=== PATIENT | male | born 1985 | race Caucasian/White ===

== ENCOUNTER 2019-06-11 00:05 | Emergency (ER) | payer SELFPAY ==
[2019-06-11 00:11] VITALS: BP 152/86; PULSE 68; RESP 20; TEMP 36.1; O2SAT 100
[2019-06-11 00:20] LABS: Bacteria Urine None Seen
--- NOTE | 2019-06-11 00:22 | ED_ITS ---
HPI - Abdominal Pain General Chief Complaint: Abdominal Pain Stated Complaint: left side pain into testicles, vomiting Time Seen by Provider: 06/11/19 00:07 Source: patient Mode of arrival: ambulatory Limitations: no limitations History of Present Illness HPI narrative: 33-year-old male here for evaluation of left-sided flank pain radiating the left side of his abdomen down to the left testicle. Patient states that it started earlier today. He stated that he did take some ibuprofen which seemed to relieve the symptoms enough to a point where he could go out to the store. He stated that when he returned home and laid down the symptoms suddenly returned. He also feels like he has been urinating more recently. Also had some nausea vomiting. No fevers. Has never had a kidney stone before. Pain is not worse with palpation or movement. Related Data Previous Rx's Medication Instructions Recorded selenium sulfide 1 sunny TOPICAL QDAY #118 ml 06/30/16 clotrimazole 1 % topical cream 1 applictn TOP TID 28 Days #30 gram 05/02/19 prednisone 20 mg tablet 20 mg PO DAILY #12 tab 05/02/19 sulfamethoxazole 800 1 tab PO BID #20 tab 05/02/19 mg-trimethoprim 160 mg tablet hydrocodone-acetaminophen 1 tab PO Q4-6H PRN #7 tab 06/11/19 ondansetron 4 mg PO Q6H PRN #7 tab 06/11/19 Allergies Allergy/AdvReac Type Severity Reaction Status Date / Time No Known Drug Allergies Allergy Verified 05/02/19 12:46 Review of Systems Constitutional Denies fever(s) and Denies headache(s) ENT Ears, Nose, Mouth, and Throat: Denies headache(s) Cardiovascular Denies chest pain and Denies dyspnea Respiratory Denies dyspnea Gastrointestinal Gastrointestinal: Reports abdominal pain, Reports nausea and Reports vomiting Genitourinary Comments: Pain radiating to the left testicle Musculoskeletal Reports back pain, Denies myalgias and Denies arthralgias Integumentary/Breasts Denies rash Neurologic Denies behavioral changes and Denies headache(s) Psychiatric Denies behavioral changes Hematologic/Lymphatic Denies easy bleeding and Denies easy bruising [facility] Medical History Patient denies medical problems (Acute) Social History Smoking Status: Never smoker Social History Smoking Status: Never smoker Exam Initial Vital Signs Initial Vital Signs: Vital Signs Temperature 96.9 F L 06/11/19 00:11 Pulse Rate 68 06/11/19 00:11 Respiratory Rate 20 06/11/19 00:11 Blood Pressure 152/86 H 06/11/19 00:11 Pulse Oximetry 100 06/11/19 00:11 Const General: cooperative, comfortable, well developed and well groomed Orientation: alert and awake HENMT Head: normal to inspection and normocephalic Resp Effort & Inspection: normal respiratory effort Auscultation: clear to auscultation bilaterally Cardio Rate: regular rate Rhythm: regular rhythm GI Inspection: non-distended Palpation: soft, No firm and No tender Back/Spine/Pelvis Back: No CVA tenderness Skin Lesions: no lesions Rashes: no rashes Neuro General: alert and awake Speech: speech normal Motor: muscle tone normal throughout Sensory Exam: no sensory deficits noted Extrem General: normal to inspection and capillary refill normal Psych Appearance: grossly normal and well kempt Course Orders Ordered: ED Orders 06/11/19 00:15 Urinalysis and Microscopic Stat 06/11/19 00:22 CT kidney ureter bladder (KUB) Stat 06/11/19 00:25 Basic Metabolic Panel Stat Complete Blood Count AUTO DIFF Stat Discontinued Medications Hydrocodone Bitart/Acetaminophen (Vicodin Prepack) 1 bottle MISC SEEINSTR ONE Stop: 06/11/19 01:19 Last Admin: 06/11/19 01:27 Dose: 1 bottle Hydromorphone HCl (Dilaudid) 1 mg IV NOW ONE Stop: 06/11/19 00:21 Last Admin: 06/11/19 00:28 Dose: 1 mg Ketorolac Tromethamine (Toradol) 30 mg IV NOW ONE Stop: 06/11/19 00:21 Last Admin: 06/11/19 00:29 Dose: 30 mg Ondansetron HCl (Zofran) 4 mg IV NOW ONE Stop: 06/11/19 00:21 Last Admin: 06/11/19 00:29 Dose: 4 mg Ondansetron HCl (Zofran Odt Prepack) 1 bottle MISC SEEINSTR ONE Stop: 06/11/19 01:19 Last Admin: 06/11/19 01:27 Dose: 1 bottle Vital Signs - 8 hr 06/11/19 00:11 06/11/19 00:48 06/11/19 01:29 Temperature 96.9 F L Pulse Rate 68 68 64 Respiratory Rate 20 18 18 Blood Pressure 152/86 H 121/70 Blood Pressure [Left Arm] 116/69 Pulse Oximetry 100 99 100 MDM - Abdominal Pain Lab Data Attestation: I reviewed the patient's lab results. Result diagrams: 06/11/19 00:25 06/11/19 00:25 Lab Results 06/11/19 06/11/19 06/11/19 Range/Units 00:15 00:25 00:25 WBC 7.1 (4.5-11.0) X10^3/uL RBC 4.87 (4.5-5.9) X10^6/uL Hgb 14.0 (13.5-17.5) g/dL Hct 40.5 L (41-53) % MCV 83.2 (80-100) fL MCH 28.8 (26-34) PG MCHC 34.6 (30-36) % RDW 14.1 (11.6-14.8) % Plt Count 299 (150-400) X10^3/uL Neut % (Auto) 57.2 (50-75) % Lymph % (Auto) 30.9 (25-40) % [place] % (Auto) 9.7 (3-14) % Eos % (Auto) 1.5 L (2-4) % Baso % (Auto) 0.7 (0-2) % Neut # (Auto) 4100 (5518-5402) /uL Lymph # (Auto) 2200 (0788-1195) /uL Bledsoe # (Auto) 700 (0-900) /uL Eos # (Auto) 100 (0-450) /uL Baso # (Auto) 0 (0-100) /uL Sodium 141 (137-145) mmol/L Potassium 4.4 (3.4-5.1) mmol/L Chloride 103 (98-107) mmol/L Carbon Dioxide 26 (22-32) mmol/L BUN 19 (9-20) mg/dL Creatinine 1.20 (0.66-1.25) mg/dL Estimated GFR > 60.0 (>60) mL/min BUN/Creatinine Ratio 15.8 (6-22) Glucose 106 H (70-100) mg/dL Calcium 8.9 (8.4-10.2) mg/dL Urine Color Yellow Urine Appearance Clear Urine pH 5.5 (4.5-8.0) Ur Specific [place] >=1.030 H (1.000-1.035) Urine Protein Negative (Negative) Urine Glucose (UA) Negative (Negative) g/dL Urine Ketones Trace H (NEGATIVE) Urine Occult Blood 3+ H (Negative) Urine Nitrate Negative (Negative) Urine Bilirubin Negative (NEGATIVE) Urine Urobilinogen 0.2 (0.2) E.U./dL Ur Leukocyte Esterase Negative (NEGATIVE) Urine RBC 0-1/hpf (0-5/HPF) Urine WBC 1-5/hpf (0-5/HPF) Ur Squamous Epith Cells 0-1 /hpf (0-5/HPF) Amorphous Sediment 1+ Urine Bacteria None seen (None) Hyaline Casts 1-5/lpf (None) Urine Mucus 3+ H (Negative) Ur Culture Indicated? Cult not indicated Imaging Data CT scan - abdomen: Radiologist's impression: Read by real radiology 2 mm distal left ureteral stone MDM Narrative Medical decision making narrative: History and physical exam consistent with a left-sided ureteral stone. This is confirmed by the CT scan. No fevers. Cr eatinine is unremarkable. No sign of urinary tract infection. Will send home with symptom treatment. We discussed return precautions and follow-up instructions. He expressed understanding and agreement with plan. Discharge Plan Departure Patient Disposition: Home Clinical Impression: Left ureteral stone, Renal colic on left side Discharge Date/Time: 06/11/19 01:29 Interventions: ED Discharge Assessment Last Done: 06/11/19 01:29 Instructions: DI for Kidney Stones Activity Restrictions/Additional Instructions: Take the medication as directed. Be sure to increase your fluid intake. Return to the emergency department for any new symptoms to include fevers, inability to urinate or pain that is not controlled with the medication. You can contact 360 talk with the health resource conservation specialist here at the hospital to help establishing a primary provider. Prescriptions: New hydrocodone-acetaminophen 5-325 mg tablet 1 tab PO Q4-6H PRN (Reason: pain) Qty: 7 RF: 0 ondansetron 4 mg tablet,disintegrating 4 mg PO Q6H PRN (Reason: nausea and vomiting) Qty: 7 RF: 0 No Action prednisone 20 mg tablet 20 mg PO DAILY Qty: 12 RF: 0 sulfamethoxazole-trimethoprim [Bactrim DS] 800-160 mg tablet 1 tab PO BID Qty: 20 RF: 0 clotrimazole 1 % cream 1 applictn TOP TID 28 Days Qty: 30 RF: 1 selenium sulfide 118 ML lotion 1 sunny Topical QDAY Qty: 118 RF: 0
--- NOTE | 2019-06-11 00:22 | DI.CT.S_ITS ---
PROCEDURE: CT KIDNEY URETER BLADDER (KUB) INDICATIONS: left sided pain ,concern for stone TECHNIQUE: Noncontrast 5 mm thick sections acquired from the diaphragms to the symphysis. 5 mm thick coronal and sagittal reformats were then performed. For radiation dose reduction, the following was used: automated exposure control, adjustment of mA and/or kV according to patient size. COMPARISON: None. FINDINGS: Image quality: Excellent. Lung bases: Lung bases are clear. Heart size is normal. Urinary system: Both kidneys are normal in size. No kidney stones. There is a 2 mm distal left ureteral stone with associated minimal left hydroureteronephrosis. No right-sided hydronephrosis or perinephric fat stranding. The right ureter appears non-dilated throughout its expected course. Bladder wall thickness is normal; no calcified bladder stones. Other solid organs: Liver is prominent in size with diffuse hepatic steatosis. Gallbladder appears unremarkable. Pancreas is normal in contours. Spleen is normal in size. No adrenal nodules. Peritoneum and bowel: Unenhanced bowel loops demonstrate normal wall thickness and caliber. No free fluid or air. Normal appendix. Nodes and vessels: No retroperitoneal or mesenteric adenopathy by size criteria. Aorta and inferior vena cava are normal in caliber. Abdominal wall: No ventral hernias. Pelvis: No free pelvic fluid. No inguinal hernias or adenopathy. Bones: No suspicious bony lesions. No vertebral body compression fractures. IMPRESSION: 1. A 2 mm distal left ureteral stone with associated minimal left hydroureteronephrosis. No nephrolithiasis visualized. 2. Normal appendix. 3. Hepatic steatosis. No significant discrepancy with the shift superintendent caustic cresylate radiology preliminary report. Dictated by: Duane Verdin M.D. on 06/11/2019 at 7:41 Approved by: Duane Verdin M.D. on 06/11/2019 at 7:48
[2019-06-11 00:24] LABS: Appearance Urine UA CLEAR; Bilirubin Urine UA NEGATIVE (NEGATIVE); Color Urine UA YELLOW; Glucose Urine UA NEGATIVE (Negative); Ketones Urine UA TRACE (NEGATIVE); Leukocyte Esterase Urine UA NEGATIVE (NEGATIVE); Nitrite Urine UA NEGATIVE (Negative); Occult Blood Urine UA 3+ (Negative); Protein Urine UA NEGATIVE (Negative); Specific Gravity Urine UA >=1.030 (1.000-1.035); Urobilinogen Urine UA 0.2 E.U./dL (0.2); pH Urine UA 5.5 (4.5-8.0)
[2019-06-11] MEDS: HYDROMORPHONE 1 MG INJ IV (00:28)
[2019-06-11] MEDS: KETOROLAC 60 MG/2 ML VIAL 30 MG IV (00:29)
[2019-06-11] MEDS: ONDANSETRON 4 MG/2 ML INJ IV (00:29)
[2019-06-11 00:30] LABS: Add Manual Diff / Slide Review NO; Basophils Absolute Auto 0 /uL (0-100); Basophils Percent Auto 0.7 % (0-2); Eosinophils Absolute Auto 100 /uL (0-450); Eosinophils Percent Auto 1.5 % (2-4); Hematocrit 40.5 % (41-53); Lymphocytes Absolute Auto 2200 /uL (1100-4500); Lymphocytes Percent Auto 30.9 % (25-40); Mean Corpuscular HGB Conc 34.6 % (30-36); Mean Corpuscular Hemoglobin 28.8 PG (26-34); Mean Corpuscular Volume 83.2 fL (80-100); Monocytes Absolute Auto 700 /uL (0-900); Monocytes Percent Auto 9.7 % (3-14); Neutrophils Absolute Auto 4100 /uL (1500-7000); Neutrophils Percent Auto 57.2 % (50-75); Platelet Count 299 X10^3/uL (150-400); Red Blood Cell Count 4.87 X10^6/uL (4.5-5.9); Red Cell Distribution Width 14.1 % (11.6-14.8); White Blood Cell Count 7.1 X10^3/uL (4.5-11.0)
[2019-06-11 00:37] LABS: Amorphous Sediment Urine 1+; Culture Indicated Urine Cult Not Indicated; Hyaline Casts Urine 1-5/LPF; Mucus Urine 3+ (Negative); RBC Urine 0-1/HPF (0-5/HPF); Squamous Epithelial Cell Urine 0-1 /HPF (0-5/HPF); WBC Urine 1-5/HPF (0-5/HPF)
[2019-06-11 00:41] LABS: BUN Creatinine Ratio 15.8 (6-22); Blood Urea Nitrogen 19 mg/dL (9-20); Calcium 8.9 mg/dL (8.4-10.2); Carbon Dioxide 26 mmol/L (22-32); Chloride 103 mmol/L (98-107); Estimated Glomerular Filt Rate > 60.0 mL/min (>60); Glucose 106 mg/dL (70-100); HEMOLYSIS < 15 (0-50); Potassium 4.4 mmol/L (3.4-5.1); Sodium 141 mmol/L (137-145)
[2019-06-11 00:48] VITALS: BP 116/69; PULSE 68; RESP 18; O2SAT 99
[2019-06-11] MEDS: HYDROCODONE/ACET 5/325 PREPACK 1 BOTTLE MISC (01:27)
[2019-06-11] MEDS: ONDANSETRON 4 MG ODT PREPACK 1 BOTTLE MISC (01:27)
[2019-06-11 01:29] VITALS: BP 121/70; PULSE 64; RESP 18; O2SAT 100
== END 2019-06-11 01:29 | disposition home or self-care (01) ==
PROVIDERS: Emergency Provider Emergency Medicine
DX: N20.1 Calculus of ureter (principal); N23 Unspecified renal colic
CPT/HCPCS: 36591; 74176; 80048; 81001; 85025; 96374; 96375; 99282; 99284; J1170; J1885; J2405

== ENCOUNTER → 2020-10-05 09:30 | Outpatient (CLI) | payer OTHER, MEDICAID, SELFPAY ==
[2020-10-05 10:10] LABS: Add Manual Diff / Slide Review NO; Basophils Absolute Auto 0 /uL (0-100); Basophils Percent Auto 0.3 % (0-2); Eosinophils Absolute Auto 100 /uL (0-450); Eosinophils Percent Auto 0.9 % (2-4); Hematocrit 45.1 % (41-53); Hemoglobin 15.3 g/dL (13.5-17.5); Lymphocytes Absolute Auto 1800 /uL (1100-4500); Lymphocytes Percent Auto 28.5 % (25-40); Mean Corpuscular HGB Conc 33.8 % (30-36); Mean Corpuscular Hemoglobin 28.4 PG (26-34); Mean Corpuscular Volume 83.8 fL (80-100); Monocytes Absolute Auto 700 /uL (0-900); Monocytes Percent Auto 10.5 % (3-14); Neutrophils Absolute Auto 3800 /uL (1500-7000); Neutrophils Percent Auto 59.8 % (50-75); Platelet Count 305 X10^3/uL (150-400); Red Blood Cell Count 5.38 X10^6/uL (4.5-5.9); Red Cell Distribution Width 14.1 % (11.6-14.8); White Blood Cell Count 6.3 X10^3/uL (4.5-11.0)
[2020-10-05 10:22] LABS: Alanine Aminotransferase 76 IU/L (<50); Albumin 4.9 g/dL (3.5-5.0); Albumin Globulin Ratio 1.6 (1.0-2.8); Alkaline Phosphatase 57 U/L (38-126); Aspartate Aminotransferase 43 IU/L (17-59); BUN Creatinine Ratio 23.1 (6-22); Bilirubin Total 0.6 mg/dL (0.2-1.3); Blood Urea Nitrogen 18 mg/dL (9-20); Calcium 9.5 mg/dL (8.4-10.2); Carbon Dioxide 25 mmol/L (22-32); Chloride 106 mmol/L (98-107); Estimated Glomerular Filt Rate > 60.0 mL/min (>60); Globulin 3.1 g/dL (1.7-4.1); Glucose 98 mg/dL (70-100); HEMOLYSIS < 15 (0-50); Potassium 4.2 mmol/L (3.4-5.1); Sodium 138 mmol/L (137-145)
== END ==
PROVIDERS: PCP Registered Nurse; Referring Provider Registered Nurse; Visit Provider Registered Nurse
DX: R55 Syncope and collapse (principal); Z83.3 Family history of diabetes mellitus
CPT/HCPCS: 36415; 80053; 85025